=== PATIENT | male | born 1950 | race Caucasian/White ===

== ENCOUNTER 2017-02-09 10:33 | Emergency (ER) | payer MEDICARE, BC ==
[~2017-02-09] VITALS: Ht 172.7 cm; Wt 92.0 kg
[~2017-02-09 10:33] MED LIST: CIPR500T4 PO; FAMO40TA38 PO; GLYB5TAB3 PO; LEVO125T75 PO; METF500T4 PO; METR500T PO; SMV40T PO
[2017-02-09 10:35] VITALS: Ht 172.7 cm; Wt 92.0 kg
[2017-02-09] MEDS ORDERED: DICY10CA60 PO (10:57)
--- NOTE | 2017-02-09 11:02 | ERD ---
ER Documentation Chief Complaint Date/Time DATE: 02/09/17 TIME: 10:58 Chief Complaint right upper abdominal pain x 1 month, seen here 01/30/17 for same problem HPI 66-year-old male presents to the emergency department for abdominal pain. Patient has had this abdominal pain for over a year now. He has had 2 evaluations in our emergency department both including lab tests are normal and a CAT scan that was normal. His last evaluation for this was approximately 10 days ago. Patient was started on antibiotics, but the pain is never quite gone away. It is not getting worse. It is intermittent and in the right upper quadrant. It also in the right flank. There is no associated fevers, chills, hematuria. Patient has been able to tolerate oral intake and has had no vomiting. Patient currently reports the pain is nonspecific and mild if not completely gone. ROS All systems reviewed and are negative except as per history of present illness. Medications Home Meds Active Scripts Dicyclomine Hcl* (Bentyl*) 10 Mg Capsule, 10 MG PO QID, #20 CAP Prov:NATE MAYER 02/09/17 Famotidine* (Pepcid*) 40 Mg Tablet, 40 MG PO HS, #30 TAB Prov:NO FRIAS S. 01/31/17 Metronidazole* (Flagyl*) 500 Mg Tablet, 500 MG PO TID for 7 Days, TAB Prov:NO FRIAS S. 01/31/17 Ciprofloxacin Hcl* (Ciprofloxacin Hcl*) 500 Mg Tablet, 500 MG PO BID for 7 Days , TAB Prov:NO FRIAS. 01/31/17 Reported Medications Glyburide* (Glyburide*) 5 Mg Tablet, 5 MG PO BID, #60 TAB 07/17/16 Metformin* (Glucophage*) 500 Mg Tab, 500 MG PO BID, #30 TAB 07/17/16 Levothyroxine Sodium* (Levothyroxine Sodium*) 125 Mcg Tablet, 125 MCG PO BEFORE BREAKFAST, #30 TAB 07/17/16 Simvastatin (Simvastatin) 40 Mg Tablet, 40 MG PO QHS, #30 TAB 07/17/16 Allergies Allergies: Coded Allergies: No Known Allergy (Unverified , 07/17/16) PMhx/Soc Hx Psychiatric Problems: No Hx Miscellaneous Medical Probl: No Hx Alcohol Use: Yes (OCCASIONALLY) Hx Substance Use: No Hx Tobacco Use: Yes (pack/day) Smoking Status: Current every day smoker FmHx Noncontributory for chief complaint Physical Exam Vitals Vital Signs Date Time Temp Pulse Resp B/P Pulse Ox O2 Delivery O2 Flow Rate FiO2 02/09/17 10:35 88 20 125/64 99 Physical Exam GENERAL: The patient is well developed and appropriate for usual state of health in no apparent distress HEENT: Pupils equal, round, and reactive to light. EOMI. There is no scleral icterus. NECK: C-spine is soft and supple, there is no meningismus. There is no cervical lymphadenopathy. LUNGS: Clear to auscultation bilaterally. There are no rales, wheezes or rhonchi. HEART: Regular rate and rhythm, no murmurs, clicks, rubs or gallops. ABDOMEN: Soft, non-tender, non-distended. There are bowel sounds in all four quadrants. No rebound or guarding. EXTREMITIES: There is no peripheral cyanosis or edema. No focal swelling or erythema. NEURO: The patient moves all four extremities with 5/5 strength. Cranial nerves II - XII are intact. Normal gait. Alert and oriented SKIN: There is no apparent rash or petechiae. HEME/LYMPHATIC: There is no evidence of excessive bruising or lymphedema. PSYCHIATRIC: The patient does not appear anxious or depressed. Procedures/MDM Patient was taken to a room, seen and examined Medical decision makin-year-old male presents with recurrent abdominal pain for over a year now. His examination is not consistent with acute surgical emergencies and he appears to be completely nontoxic. In conversation with the patient, he has never had medication for the pain, which I will be providing. He is otherwise clinically nontoxic and appropriate for outpatient care at this time and does not wish to have further lab tests or repeat imaging. Departure Diagnosis: Primary Impression: Abdominal pain Condition: Stable Patient Instructions: Abdominal Pain Referrals: TEODORO GUTIERRES (PCP) Additional Instructions: See your doctor for follow-up as discussed. Take a copy of your test results, if appropriate, to this follow-up visit. See your doctor or return here if your symptoms do not improve as expected. At any time, please return to the emergency department for any change or worsening in her symptoms. NATE MAYER Feb 09, 2017 11:02
[2017-02-09 11:07] VITALS: BP 128/77; PULSE 68; RESP 18; TEMP 98.1
== END 2017-02-09 11:31 | disposition home or self-care (01) ==
LOC: E/R 10:33
DX: R10.11 Right upper quadrant pain (principal); F17.210 Nicotine dependence, cigarettes, uncomplicated
CPT/HCPCS: 99283

== ENCOUNTER 2017-02-09 21:32 | Emergency (ER) | payer MEDICARE, BC ==
[~2017-02-09] VITALS: Ht 175.3 cm; Wt 90.5 kg
[~2017-02-09 21:32] MED LIST changes: +DICY10CA60 PO
[2017-02-09 21:35] VITALS: Ht 175.3 cm; Wt 90.5 kg
--- NOTE | 2017-02-09 22:19 | ERD ---
ER Documentation Chief Complaint Date/Time DATE: 02/09/17 TIME: 22:15 Chief Complaint ap and vomiting not releived since this morning HPI Patient is a 66-year-old male who presents to the ER with gradual onset, intermittent, moderate to severe right upper quadrant pain for 1 month. The patient was seen this morning for the same complaints and was prescribed Bentyl. The physician's note from this morning notes that the patient had reported that he has had this pain for 1 year. The patient had one episode of vomiting today. He denies constipation or diarrhea. He denies fever. He denies bloody emesis. He states that the pain lasts a few hours at a time, and resolves spontaneously, and then recurs a few hours later. It is worsened by food. The patient is on antibiotics for diverticulitis, but CT scan on January 30 did not show diverticulitis and the pain is in the right upper quadrant only. The pain does radiate to the back. 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 The patient states that his pain is currently minimal. ROS All systems reviewed and are negative except as per history of present illness. Medications Home Meds Active Scripts Dicyclomine Hcl* (Bentyl*) 10 Mg Capsule, 10 MG PO QID, #20 CAP Prov:NATE MAYER 02/09/17 Famotidine* (Pepcid*) 40 Mg Tablet, 40 MG PO HS, #30 TAB Prov:NO FRIAS 01/31/17 Metronidazole* (Flagyl*) 500 Mg Tablet, 500 MG PO TID for 7 Days, TAB Prov:NO FRIAS 01/31/17 Ciprofloxacin Hcl* (Ciprofloxacin Hcl*) 500 Mg Tablet, 500 MG PO BID for 7 Days , TAB Prov:NO FRIAS 01/31/17 Reported Medications Glyburide* (Glyburide*) 5 Mg Tablet, 5 MG PO BID, #60 TAB 07/17/16 Metformin* (Glucophage*) 500 Mg Tab, 500 MG PO BID, #30 TAB 07/17/16 Levothyroxine Sodium* (Levothyroxine Sodium*) 125 Mcg Tablet, 125 MCG PO BEFORE BREAKFAST, #30 TAB 07/17/16 Simvastatin (Simvastatin) 40 Mg Tablet, 40 MG PO QHS, #30 TAB 11/21/16 Allergies Allergies: Coded Allergies: No Known Allergy (Unverified , 07/17/16) PMhx/Soc Past medical history: Diabetes, kidney stones, hypothyroidism Past surgical history: Right nephrectomy, thyroidectomy Social history: Denies tobacco or alcohol Hx Psychiatric Problems: No Hx Miscellaneous Medical Probl: No Hx Alcohol Use: Yes (OCCASIONALLY) Hx Substance Use: No Hx Tobacco Use: Yes (pack/day) FmHx Family History: No coronary disease, No diabetes Physical Exam Vitals Vital Signs Date Time Temp Pulse Resp B/P Pulse Ox O2 Delivery O2 Flow Rate FiO2 02/09/17 21:35 98.1 78 20 129/91 97 Physical Exam Const: Alert, no acute distress Head: Atraumatic Eyes: Normal Conjunctiva, no pallor, no icterus ENT: Normal External Ears, Nose and Mouth. Moist mucous membranes Neck: Full range of motion..~ No meningismus. Resp: Clear to auscultation bilaterally, no wheezes, no rales Cardio: Regular rate and rhythm, no murmurs Abd: Soft, non tender, non distended. No rebound or guarding, no CVA tenderness Skin: No petechiae or rashes Back: No midline or flank tenderness Ext: No cyanosis, or edema Neur: Awake and alert Psych: Normal Mood and Affect Procedures/MDM MDM: Patient is a 66-year-old male who presents with chronic intermittent abdominal pain. The location is in the right upper quadrant. CT scan from January 30 did not show any gallstones or biliary abnormality. The patient is status post nephrectomy on the right side. He has a benign abdominal exam at this time, and normal vital signs. His pain is almost completely resolved. Given the chronicity of his pain and his benign exam, I do not believe that any acute testing is indicated at this time. I have advised the patient to follow- up with his PMD as soon as possible for referral to gastroenterology. I have advised patient and his of the need to return to the ER for fever, vomiting , or pain that does not spontaneously resolve. I also advised the patient to take Bentyl as needed for pain. He was prescribed Bentyl today, but states that he did not take it when he had recurrence of pain. Departure Diagnosis: Primary Impression: Abdominal pain Abdominal location: right upper quadrant Qualified Code: R10.11 - Right upper quadrant abdominal pain Condition: Stable Patient Instructions: Abdominal Pain Referrals: TER-POGHOSYAN,ZARINE (PCP) Additional Instructions: Return to the ER for pain that does not resolve, fever, vomiting. Follow-up with your PMD on Sunday. MARTI GODOY MD Feb 09, 2017 22:19
== END 2017-02-09 23:21 | disposition home or self-care (01) ==
LOC: E/R 21:32
DX: R10.11 Right upper quadrant pain (principal); E11.9 Type 2 diabetes mellitus without complications; E03.9 Hypothyroidism, unspecified; F17.210 Nicotine dependence, cigarettes, uncomplicated; Z79.84 Long term (current) use of oral hypoglycemic drugs
CPT/HCPCS: 99283

== ENCOUNTER 2017-02-12 02:43 | Emergency (ER) | payer MEDICARE, BC ==
[~2017-02-12] VITALS: Ht 170.2 cm; Wt 200.0 kg
[~2017-02-12 02:43] MED LIST changes: -CIPR500T4 PO; -METR500T PO
[2017-02-12 02:49] VITALS: Ht 170.2 cm; Wt 200.0 kg
[2017-02-12] MEDS ORDERED: SOD CHLORIDE 0.9% 500 ML IV STA (05:43)
[2017-02-12 06:25] LABS: ADD SCAN DIFF NO
--- NOTE | 2017-02-12 06:25 | RADRPT ---
PROCEDURE: XR Chest. CLINICAL INDICATION: Abdominal Pain TECHNIQUE: Portable single view of the chest COMPARISON: None. FINDINGS: The cardiomediastinal silhouette appears within normal limits. The lungs are clear and no pleural e ffusion or significant edema is seen. No bony abnormality is seen. IMPRESSION: No definite acute pulmonary disease. RPTAT: [facility]BE Dori Mckeon Physician Date Time Electronically viewed and signed by Dori Mckeon Physician on 02/12/2017 06:25 LE/
[2017-02-12 06:29] LABS: BASOPHIL # 0.1 10^3/ul (0.0-0.1); BASOPHILS % 0.5 % (0.0-2.0); EOSINOPHILS # 0.2 10^3/ul (0.0-0.5); HEMATOCRIT 47.7 % (42.0-52.0); HEMOGLOBIN 15.9 g/dl (14.0-18.0); LYMPHOCYTES # 2.2 10^3/ul (0.8-2.9); LYMPHOCYTES % 24.1 % (15.0-51.0); MEAN CORPUSCULAR HEMOGLOBIN 29.8 pg (29.0-33.0); MEAN CORPUSCULAR HGB CONC 33.3 g/dl (32.0-37.0); MEAN CORPUSCULAR VOLUME 89.5 fl (82.0-101.0); MEAN PLATELET VOLUME 9.8 fl (7.4-10.4); MONOCYTE # 0.6 10^3/ul (0.3-0.9); MONOCYTES % 6.3 % (0.0-11.0); NEUTROPHIL # 6.2 10^3/ul (1.6-7.5); NEUTROPHILS % 66.9 % (39.0-77.0); PLATELET COUNT 270 10^3/UL (140-415); RED BLOOD COUNT 5.33 10^6/ul (4.70-6.10); RED CELL DISTRIBUTION WIDTH 13.4 % (11.5-14.5); WHITE BLOOD COUNT 9.3 10^3/ul (4.8-10.8)
--- NOTE | 2017-02-12 06:31 | ERD ---
ER Documentation Chief Complaint Date/Time DATE: 02/12/17 TIME: 06:28 Chief Complaint on and off abdominal pain for a few days now HPI Patient is a 67-year-old male who presents with sudden onset, intermittent, moderate, dull right upper quadrant pain for 2-1/2 weeks. He had a CT scan in the ER in early January that did not show any significant disease. He was seen twice in the ER 3 days ago. He was prescribed Bentyl, but states that it is not helping. His states that the patient has not wanted to eat. She states that his pain comes and goes approximately every 30 minutes. She denies any vomiting, diarrhea, constipation, fever. She denies that there is been any change in his symptoms over the preceding 2 weeks. ROS All systems reviewed and are negative except as per history of present illness. Medications Home Meds Active Scripts Dicyclomine Hcl* (Bentyl*) 10 Mg Capsule, 10 MG PO QID, #20 CAP Prov:NATE MAYER 02/09/17 Reported Medications Famotidine* (Famotidine*) 20 Mg Tablet, 20 MG PO DAILY, #30 TAB 02/12/17 Tamsulosin Hcl* (Flomax*) 0.4 Mg Cap.er.24h, 0.4 MG PO HS, CAP 02/12/17 Metoprolol Succinate* (Toprol XL*) 25 Mg Tab.sr.24h, 25 MG PO DAILY, #30 TAB 02/12/17 Glyburide* (Glyburide*) 5 Mg Tablet, 5 MG PO BID, #60 TAB 07/17/16 Levothyroxine Sodium* (Levothyroxine Sodium*) 125 Mcg Tablet, 125 MCG PO BEFORE BREAKFAST, #30 TAB 07/17/16 Simvastatin (Simvastatin) 40 Mg Tablet, 40 MG PO QHS, #30 TAB 07/17/16 Discontinued Reported Medications Metformin* (Glucophage*) 500 Mg Tab, 500 MG PO BID, #30 TAB 07/17/16 Discontinued Scripts Famotidine* (Pepcid*) 40 Mg Tablet, 40 MG PO HS, #30 TAB Prov:NO FRIAS 01/31/17 Metronidazole* (Flagyl*) 500 Mg Tablet, 500 MG PO TID for 7 Days, TAB Prov:NO FRIAS 01/31/17 Ciprofloxacin Hcl* (Ciprofloxacin Hcl*) 500 Mg Tablet, 500 MG PO BID for 7 Days , TAB Prov:NO FRIAS 01/31/17 Allergies Allergies: Coded Allergies: No Known Allergy (Unverified , 02/12/17) PMhx/Soc Past medical history: Diabetes, hypothyroidism, hyperlipidemia Past surgical history: Denies Social history: Denies tobacco or alcohol Hx Psychiatric Problems: No Hx Miscellaneous Medical Probl: No Hx Alcohol Use: Yes (OCCASIONALLY) Hx Substance Use: No Hx Tobacco Use: Yes (pack/day) Smoking Status: Current every day smoker FmHx Family History: No coronary disease, No diabetes Physical Exam Vitals Vital Signs Date Time Temp Pulse Resp B/P Pulse Ox O2 Delivery O2 Flow Rate FiO2 02/12/17 10:18 87 18 140/82 98 Room Air 02/12/17 08:32 79 18 149/87 97 Room Air 02/12/17 02:49 98.4 81 20 154/79 98 Physical Exam Const: Alert, no acute distress Head: Atraumatic Eyes: Normal Conjunctiva, no pallor, no icterus ENT: Normal External Ears, Nose and Mouth. Moist mucous membranes. Neck: Full range of motion. No meningismus. Resp: Clear to auscultation bilaterally, no wheezes, no rales Cardio: Regular rate and rhythm, no murmurs Abd: Soft, non distended. Tenderness in the right upper quadrant without guarding or rebound Skin: No petechiae or rashes Back: No midline or flank tenderness Ext: No cyanosis, or edema Neur: Awake and alert, cranial nerves II through XII intact bilaterally, moves and feels 4 extremities. Psych: Normal Mood and Affect Result Diagram: 02/12/17 0555 02/12/17 0555 Results 24 hrs Laboratory Tests Test 02/12/17 05:55 02/12/17 08:20 White Blood Count 9.310^3/ul Red Blood Count 5.3310^6/ul Hemoglobin 15.9g/dl Hematocrit 47.7% Mean Corpuscular Volume 89.5fl Mean Corpuscular Hemoglobin 29.8pg Mean Corpuscular Hemoglobin Concent 33.3g/dl Red Cell Distribution Width 13.4% Platelet Count 08199^3/UL Mean Platelet Volume 9.8fl Neutrophils % 66.9% Lymphocytes % 24.1% Monocytes % 6.3% Eosinophils % 2.0% Basophils % 0.5% Nucleated Red Blood Cells % 0.0/100WBC Neutrophils # 6.210^3/ul Lymphocytes # 2.210^3/ul Monocytes # 0.610^3/ul Eosinophils # 0.210^3/ul Basophils # 0.110^3/ul Nucleated Red Blood Cells # 0.010^3/ul Sodium Level 139mmol/L Potassium Level 4.0mmol/L Chloride Level 104mmol/L Carbon Dioxide Level 23mmol/L Anion Gap 16 Blood Urea Nitrogen 15mg/dl Creatinine 1.03mg/dl Glucose Level 170mg/dl Calcium Level 10.0mg/dl Total Bilirubin 0.3mg/dl Direct Bilirubin 0.00mg/dl Indirect Bilirubin 0.3mg/dl Aspartate Amino Transf (AST/SGOT) 22IU/L Alanine Aminotransferase (ALT/SGPT) 31IU/L Alkaline Phosphatase 45IU/L Troponin I < 0.012ng/ml Total Protein 7.9g/dl Albumin 5.0g/dl Globulin 2.90g/dl Albumin/Globulin Ratio 1.72 Lipase 59U/L Urine Color LT. YELLOW Urine Clarity CLEAR Urine pH 6.0 Urine Specific [place] 1.020 Urine Ketones 15 Urine Nitrite NEGATIVE Urine Bilirubin NEGATIVE Urine Urobilinogen 0.2 E.U./dL Urine Leukocyte Esterase NEGATIVE Urine Microscopic RBC NONE SEEN/HPF Urine Microscopic WBC 0-2/HPF Urine Hemoglobin NEGATIVE Urine Glucose NEGATIVE% Urine Total Protein TRACE Current Medications Medications (Trade) Dose Ordered Sig/Nathalie Route PRN Reason Start Time Stop Time Status Last Admin Dose Admin Sodium Chloride (NS) 500 ml @ 500 mls/hr Q1H STAT IV 02/12/17 05:43 02/12/17 06:42 DC 02/12/17 05:57 Procedures/MDM EKG read by me: Time 0606, rate 63 Rhythm: Normal sinus [place]: Left axis deviation Intervals: First-degree AV block ST-T waves: no ischemic changes Ectopy: No Q-waves: No Impression: First-degree AV block, left anterior fascicular block, no ischemia MDM: Patient is a 67-year-old male who is had 2 weeks of abdominal pain. The pain is intermittent and recurs approximately every half hour to 2 hours. The pain is reproducible on palpation of the abdomen. There is no guarding or rebound. The patient had a CT scan done on January 30 that did not show any significant pathology. He has had 3 other visits to the ER since that time with symptoms that have been persistent. There are no new features. No vomiting or fever. Patient is status post right nephrectomy. He has stable vital signs and relatively benign exam. His labs and UA are unremarkable. I spoke with his primary doctor and requested follow-up for referral to GI and for long-term pain management. His doctor said that she would be able to follow -up with him in clinic later today. There are no features that are concerning for coronary ischemia. Given the stability of symptoms since his prior CT, I did not believe that a repeat CT was indicated. There are no features that are concerning for mesenteric ischemia. The patient has a normal white blood cell count. Patient was discharged and advised to follow-up at his doctor's office later today. Departure Diagnosis: Primary Impression: Abdominal pain Abdominal location: right upper quadrant Qualified Code: R10.11 - Right upper quadrant abdominal pain Condition: Stable MARTI GODOY MD Feb 12, 2017 06:31
[2017-02-12 06:59] LABS: ALANINE AMINOTRANSFERASE 31 IU/L (13-69); ALBUMIN/GLOBULIN RATIO 1.72; ALKALINE PHOSPHATASE 45 IU/L (42-121); ANION GAP 16 (8-16); ASPARTATE AMINO TRANSFERASE 22 IU/L (15-46); BILIRUBIN,INDIRECT 0.3 mg/dl (0-1.1); BILIRUBIN,TOTAL 0.3 mg/dl (0.2-1.3); BLOOD UREA NITROGEN 15 mg/dl (7-20); CARBON DIOXIDE 23 mmol/L (21-31); CHLORIDE 104 mmol/L (97-110); CREATININE 1.03 mg/dl (0.61-1.24); GLUCOSE 170 mg/dl (70-220); SODIUM 139 mmol/L (135-144); TOTAL PROTEIN 7.9 g/dl (6.1-8.1)
[2017-02-12 07:15] LABS: TROPONIN-I < 0.012 ng/ml (0.00-0.12)
[2017-02-12 08:38] LABS: ADD UMIC YES; UR BILIRUBIN (Dip) NEGATIVE (NEGATIVE); UR BLOOD (Dip) NEGATIVE (NEGATIVE); UR CLARITY CLEAR (CLEAR); UR COLOR LT. YELLOW (YELLOW); UR GLUCOSE (Dip) NEGATIVE (NEGATIVE); UR KETONES (Dip) 15 (NEGATIVE); UR LEUKOCYTE ESTERASE (Dip) NEGATIVE (NEGATIVE); UR NITRITE (Dip) NEGATIVE (NEGATIVE); UR TOTAL PROTEIN (Dip) TRACE (NEGATIVE); UR UROBILINOGEN (Dip) 0.2 E.U./dL (0.1-1.0)
[2017-02-12 08:51] LABS: URINE RBCS NONE SEEN /HPF (0)
[2017-02-12] MEDS ORDERED: METO25TA7 PO (09:24)
[2017-02-12] MEDS ORDERED: TAMS-14 PO (09:24)
[2017-02-12] MEDS ORDERED: FAMO20TA18 PO (09:24)
[2017-02-12 10:18] VITALS: BP 140/82; PULSE 87; RESP 18
== END 2017-02-12 10:19 | disposition home or self-care (01) ==
LOC: E/R 02:43
DX: R10.11 Right upper quadrant pain (principal); E03.9 Hypothyroidism, unspecified; F17.210 Nicotine dependence, cigarettes, uncomplicated; E11.9 Type 2 diabetes mellitus without complications; Z79.84 Long term (current) use of oral hypoglycemic drugs
CPT/HCPCS: 36415; 71010; 80053; 81001; 83690; 84484; 85025; 87086; 93005; 99285; J7040